=== PATIENT | male | born 1955 | race Caucasian/White ===

== ENCOUNTER 2022-03-26 09:02 | Inpatient (IN) | payer MEDICAID ==
[~2022-03-26] VITALS: Ht 185.4 cm; Wt 77.1 kg
[2022-03-26] MEDS ORDERED: METHYLPREDNISOLONE SOD SUCC 125 MG/2 ML VIAL IV STA (09:11)
[2022-03-26] MEDS ORDERED: IPRATROPIUM BROMIDE (0.02%) 0.5MG/2.5ML NEB HHN STA (09:11)
[2022-03-26] MEDS ORDERED: ALBUTEROL (0.083%) 2.5MG/3ML NEB HHN STA (09:11)
[2022-03-26 10:08] LABS: BASOPHILS % 0.5 % (0.0-2.0); EOSINOPHILS % 4.9 % (0.0-5.0); HEMATOCRIT. 44.4 % (42.0-52.0); HEMOGLOBIN. 15.3 g/dL (14.0-18.0); LYMPHOCYTES % 11.6 % (20.0-50.0); MEAN CORPUSCULAR HEMOGLOBIN 31.9 pg (28.0-32.0); MEAN PLATELET VOLUME 7.6 fl (7.4-10.4); MONOCYTES % 3.8 % (2.0-8.0); NEUTROPHILS % 79.2 % (40.0-76.0); PLATELET 282 x1000/uL (130-400); RED BLOOD CELL COUNT 4.78 mill/uL (4.7-6.1); RED CELL DISTRIBUTION WIDTH 12.7 % (11.6-14.6)
[2022-03-26 10:12] LABS: CHLORIDE 95 mEq/L (98-107)
[2022-03-26 10:45] LABS: BG BASE EXCESS 3.4 mmol/L (-2.0-2.0); BG CARBOXYHEMOGLOBIN 1.3 % (0.5-1.5); BG DEOXYHEMOGLOBIN 0.7 % (0.0-5.0); BG FRACTION INSPIRED OXYGEN 50; BG HCO3 ACT 35.2 mmol/L (22.0-26.0); BG METHEMOGLOBIN 0.4 % (0.0-1.5); BG OXYGEN SATURATION 99.3 % (92.0-98.5); BG OXYHEMOGLOBIN 97.6 % (94.0-97.0); BG PCO2 92.8 mmHg (35.0-45.0); BG PH 7.197 (7.350-7.450); BG SAMPLE SITE LEFT BRACHIAL; BG TOTAL HEMOGLOBIN 15.4 g/dL (12.0-18.0); BG VENT MODE MASK - BIPAP
[2022-03-26] MEDS ORDERED: MAGNESIUM 2 G PREMIX 50 ML IV STA (10:48)
[2022-03-26 12:43] LABS: BG CARBOXYHEMOGLOBIN 1.1 % (0.5-1.5); BG DEOXYHEMOGLOBIN 3.9 % (0.0-5.0); BG FRACTION INSPIRED OXYGEN 35; BG HCO3 ACT 39.7 mmol/L (22.0-26.0); BG METHEMOGLOBIN 0.4 % (0.0-1.5); BG OXYHEMOGLOBIN 94.6 % (94.0-97.0); BG PCO2 93.5 mmHg (35.0-45.0); BG PH 7.246 (7.350-7.450); BG PO2 81.6 mmHg (75.0-100.0); BG SAMPLE SITE RIGHT RADIAL; BG TOTAL HEMOGLOBIN 15.7 g/dL (12.0-18.0); BG TOTAL RESPIRATORY RATE 15 b/min; BG VENT MODE MASK - BIPAP
[2022-03-26] MEDS ORDERED: IPRATROPIUM/ALBUTEROL 0.5-3(2.5)MG/3ML NEB HHN PRN (13:15)
[2022-03-26] MEDS ORDERED: DOCUSATE SODIUM 100MG CAPSULE PO PRN (13:15)
[2022-03-26] MEDS ORDERED: TRAMADOL 50MG TABLET PO PRN (13:15)
[2022-03-26] MEDS ORDERED: ACETAMINOPHEN 325MG TABLET PO PRN (13:15)
[2022-03-26] MEDS ORDERED: MAGNESIUM/ALUMINUM HYDROXIDE/SIMETHICONE 30ML UDC PO PRN (13:15)
[2022-03-26] MEDS ORDERED: ONDANSETRON HCL 4MG/2ML INJ IV PRN (13:15)
[2022-03-26] MEDS ORDERED: LORAZEPAM 2MG/ML CPJ IV PRN (13:15)
[2022-03-26] MEDS ORDERED: CEFTRIAXONE 1 G PREMIX 50 ML IV NR (13:30)
[2022-03-26] MEDS ORDERED: AZITHROMYCIN 500 MG in DEXT 5% WATER 250 ML IV NR (14:30)
[2022-03-26] MEDS: IPRATROPIUM/ALBUTEROL 0.5-3(2.5)MG/3ML NEB HHN SCH (14:33)
[2022-03-26] MEDS: AMLODIPINE 10MG TABLET PO SCH (15:11)
[2022-03-26] MEDS: ENOXAPARIN 40MG/0.4ML SYR SUBCUT SCH (15:16)
[2022-03-26] MEDS: METHYLPREDNISOLONE SOD SUCC 125 MG/2 ML VIAL IV SCH ×2 (16:43→21:55)
[2022-03-26 21:30] VITALS: BP 146/69
[2022-03-26 22:28] VITALS: BP 146/76
[2022-03-27] VITALS (12 sets, daily range): BP systolic 106–130; BP diastolic 64–86
[2022-03-27] MEDS: IPRATROPIUM/ALBUTEROL 0.5-3(2.5)MG/3ML NEB HHN SCH ×4 (01:49→20:15)
[2022-03-27] MEDS ORDERED: GUAI-1211 PO (01:50)
[2022-03-27] MEDS ORDERED: TIOT18CA3 IH (01:50)
[2022-03-27] MEDS ORDERED: NICO-789 TD (01:50)
[2022-03-27] MEDS: METHYLPREDNISOLONE SOD SUCC 125 MG/2 ML VIAL IV SCH ×3 (03:38→22:01)
[2022-03-27 05:44] LABS: HEMATOCRIT. 40.3 % (42.0-52.0); HEMOGLOBIN. 13.6 g/dL (14.0-18.0); MEAN CORPUSCULAR HEMOGLOBIN 31.3 pg (28.0-32.0); MEAN PLATELET VOLUME 8.1 fl (7.4-10.4); PLATELET 257 x1000/uL (130-400); RED BLOOD CELL COUNT 4.34 mill/uL (4.7-6.1); RED CELL DISTRIBUTION WIDTH 12.7 % (11.6-14.6)
[2022-03-27 06:37] LABS: CHLORIDE 93 mEq/L (98-107)
[2022-03-27 06:45] LABS: HDL CHOLESTEROL 56 mg/dL (40-59); LDL CHOLESTEROL 71 mg/dL (5-100)
[2022-03-27 08:01] LABS: BG BASE EXCESS 3.2 mmol/L (-2.0-2.0); BG CARBOXYHEMOGLOBIN 0.7 % (0.5-1.5); BG DEOXYHEMOGLOBIN 16.8 % (0.0-5.0); BG METHEMOGLOBIN 0.2 % (0.0-1.5); BG OXYHEMOGLOBIN 82.3 % (94.0-97.0); BG PCO2 60.8 mmHg (35.0-45.0); BG PH 7.325 (7.350-7.450); BG PO2 43.5 mmHg (75.0-100.0); BG SAMPLE SITE RIGHT BRACHIAL; BG TOTAL HEMOGLOBIN 14.4 g/dL (12.0-18.0); BG VENT MODE ROOM AIR
[2022-03-27] MEDS: AMLODIPINE 10MG TABLET PO SCH (09:28)
[2022-03-27 10:15] LABS: PLATELET ESTIMATE NORMAL
[2022-03-27 16:48] LABS: BG BASE EXCESS 6.2 mmol/L (-2.0-2.0); BG CARBOXYHEMOGLOBIN 0.9 % (0.5-1.5); BG DEOXYHEMOGLOBIN 3.3 % (0.0-5.0); BG HCO3 ACT 33.7 mmol/L (22.0-26.0); BG METHEMOGLOBIN 0.1 % (0.0-1.5); BG OXYGEN SATURATION 96.7 % (92.0-98.5); BG OXYHEMOGLOBIN 95.7 % (94.0-97.0); BG PCO2 60.9 mmHg (35.0-45.0); BG PH 7.361 (7.350-7.450); BG PO2 83.6 mmHg (75.0-100.0); BG SAMPLE SITE RIGHT BRACHIAL; BG TOTAL HEMOGLOBIN 14.5 g/dL (12.0-18.0); BG VENT MODE MASK - BIPAP
[2022-03-27] MEDS ORDERED: NALOXONE HCL 0.4MG/ML VIAL IV PRN (18:30)
[2022-03-27 20:15] LABS: BG CARBOXYHEMOGLOBIN 0.7 % (0.5-1.5); BG DEOXYHEMOGLOBIN 3.3 % (0.0-5.0); BG FRACTION INSPIRED OXYGEN 28; BG HCO3 ACT 36.1 mmol/L (22.0-26.0); BG METHEMOGLOBIN 0.2 % (0.0-1.5); BG OXYGEN SATURATION 96.7 % (92.0-98.5); BG OXYHEMOGLOBIN 95.8 % (94.0-97.0); BG PCO2 60.3 mmHg (35.0-45.0); BG PH 7.395 (7.350-7.450); BG PO2 83.9 mmHg (75.0-100.0); BG SAMPLE SITE RIGHT RADIAL; BG TOTAL HEMOGLOBIN 13.8 g/dL (12.0-18.0); BG TOTAL RESPIRATORY RATE 26 b/min; BG VENT MODE MASK - BIPAP
[2022-03-27] MEDS: CEFTRIAXONE 1,000 MG in DEXTROSE 5% WATER 50 ML IV SCH (21:56)
[2022-03-27] MEDS: AZITHROMYCIN 500MG in DEXTROSE 5% WATER 250ML IV SCH (21:57)
[2022-03-27] MEDS: ENOXAPARIN 40MG/0.4ML SYR SUBCUT SCH (21:58)
[2022-03-28] VITALS (11 sets, daily range): BP systolic 88–129; BP diastolic 53–78
[2022-03-28] MEDS: IPRATROPIUM/ALBUTEROL 0.5-3(2.5)MG/3ML NEB HHN SCH ×4 (01:04→20:06)
[2022-03-28] MEDS: METHYLPREDNISOLONE SOD SUCC 125 MG/2 ML VIAL IV SCH ×2 (04:58→10:37)
[2022-03-28 08:07] LABS: BG BASE EXCESS 10.1 mmol/L (-2.0-2.0); BG CARBOXYHEMOGLOBIN 0.9 % (0.5-1.5); BG DEOXYHEMOGLOBIN 3.5 % (0.0-5.0); BG FRACTION INSPIRED OXYGEN 28; BG HCO3 ACT 37.1 mmol/L (22.0-26.0); BG METHEMOGLOBIN 0.1 % (0.0-1.5); BG OXYGEN SATURATION 96.5 % (92.0-98.5); BG OXYHEMOGLOBIN 95.5 % (94.0-97.0); BG PCO2 59.4 mmHg (35.0-45.0); BG PH 7.413 (7.350-7.450); BG PO2 80.6 mmHg (75.0-100.0); BG SAMPLE SITE RIGHT RADIAL; BG TOTAL HEMOGLOBIN 14.3 g/dL (12.0-18.0); BG TOTAL RESPIRATORY RATE 22 b/min; BG VENT MODE MASK - BIPAP
[2022-03-28] MEDS: AMLODIPINE 10MG TABLET PO SCH (10:37)
[2022-03-28] MEDS: ENOXAPARIN 40MG/0.4ML SYR SUBCUT SCH (13:54)
[2022-03-28] MEDS: AZITHROMYCIN 500MG in DEXTROSE 5% WATER 250ML IV SCH (13:54)
[2022-03-28] MEDS: CEFTRIAXONE 1,000 MG in DEXTROSE 5% WATER 50 ML IV SCH (16:06)
[2022-03-28] MEDS: METHYLPREDNISOLONE SOD SUCC 40 MG/ML VIAL IV SCH ×2 (16:44→23:10)
[2022-03-29] VITALS (18 sets, daily range): BP systolic 99–142; BP diastolic 49–91
[2022-03-29] MEDS: IPRATROPIUM/ALBUTEROL 0.5-3(2.5)MG/3ML NEB HHN SCH ×4 (01:25→20:48)
[2022-03-29 08:27] LABS: BG BASE EXCESS 8.7 mmol/L (-2.0-2.0); BG CARBOXYHEMOGLOBIN 0.3 % (0.5-1.5); BG DEOXYHEMOGLOBIN 3.5 % (0.0-5.0); BG FRACTION INSPIRED OXYGEN 32; BG HCO3 ACT 35.4 mmol/L (22.0-26.0); BG OXYGEN SATURATION 96.5 % (92.0-98.5); BG OXYHEMOGLOBIN 95.2 % (94.0-97.0); BG PCO2 57.4 mmHg (35.0-45.0); BG PH 7.408 (7.350-7.450); BG PO2 88.5 mmHg (75.0-100.0); BG SAMPLE SITE RIGHT RADIAL; BG VENT MODE NASAL CANNULA
[2022-03-29] MEDS: METHYLPREDNISOLONE SOD SUCC 40 MG/ML VIAL IV SCH ×2 (09:01→16:15)
[2022-03-29] MEDS: AMLODIPINE 10MG TABLET PO SCH (09:02)
[2022-03-29] MEDS ORDERED: IOHEXOL-300 100 ML BOTTLE ONE (13:19)
[2022-03-29] MEDS: ENOXAPARIN 40MG/0.4ML SYR SUBCUT SCH (14:38)
[2022-03-29] MEDS: AZITHROMYCIN 500MG in DEXTROSE 5% WATER 250ML IV SCH (14:45)
[2022-03-29 15:03] LABS: HEMATOCRIT. 40.3 % (42.0-52.0); HEMOGLOBIN. 13.5 g/dL (14.0-18.0); MEAN CORPUSCULAR HEMOGLOBIN 30.8 pg (28.0-32.0); MEAN CORPUSCULAR VOLUME 91.8 fL (80.0-94.0); MEAN PLATELET VOLUME 8.7 fl (7.4-10.4); PLATELET 265 x1000/uL (130-400); RED BLOOD CELL COUNT 4.39 mill/uL (4.7-6.1); RED CELL DISTRIBUTION WIDTH 12.8 % (11.6-14.6)
[2022-03-29 15:28] LABS: CHLORIDE 93 mEq/L (98-107)
[2022-03-29 15:57] LABS: PLATELET ESTIMATE NORMAL
[2022-03-29] MEDS: CEFTRIAXONE 1,000 MG in DEXTROSE 5% WATER 50 ML IV SCH (16:15)
[2022-03-30] VITALS (12 sets, daily range): BP systolic 102–135; BP diastolic 64–77
[2022-03-30] MEDS: METHYLPREDNISOLONE SOD SUCC 40 MG/ML VIAL IV SCH ×3 (00:05→16:08)
[2022-03-30] MEDS: IPRATROPIUM/ALBUTEROL 0.5-3(2.5)MG/3ML NEB HHN SCH ×4 (03:07→22:37)
[2022-03-30] MEDS: AMLODIPINE 10MG TABLET PO SCH (09:00)
[2022-03-30] MEDS: ENOXAPARIN 40MG/0.4ML SYR SUBCUT SCH (13:02)
[2022-03-30] MEDS: AZITHROMYCIN 500MG in DEXTROSE 5% WATER 250ML IV SCH (13:03)
[2022-03-30] MEDS: CEFTRIAXONE 1,000 MG in DEXTROSE 5% WATER 50 ML IV SCH (14:53)
[2022-03-31] VITALS (12 sets, daily range): BP systolic 91–128; BP diastolic 62–81
[2022-03-31] MEDS: METHYLPREDNISOLONE SOD SUCC 40 MG/ML VIAL IV SCH ×4 (00:01→23:41)
[2022-03-31] MEDS: IPRATROPIUM/ALBUTEROL 0.5-3(2.5)MG/3ML NEB HHN SCH ×4 (02:19→20:24)
[2022-03-31 06:50] LABS: HEMATOCRIT 40.1 % (42.0-52.0); HEMOGLOBIN 13.7 g/dL (14.0-18.0); MEAN CORPUSCULAR HEMOGLOBIN 31.2 pg (28.0-32.0); MEAN CORPUSCULAR VOLUME 91.7 fL (80.0-94.0); PLATELET 202 x1000/uL (130-400); RED BLOOD CELL COUNT 4.38 mill/uL (4.7-6.1); RED CELL DISTRIBUTION WIDTH 12.8 % (11.6-14.6)
[2022-03-31 06:51] LABS: CHLORIDE 94 mEq/L (98-107)
[2022-03-31] MEDS: AMLODIPINE 10MG TABLET PO SCH (08:27)
[2022-03-31] MEDS: ENOXAPARIN 40MG/0.4ML SYR SUBCUT SCH (12:35)
[2022-03-31] MEDS: GUAIFENESIN 200MG/10ML SUGAR FREE UDC PO PRN (12:35)
[2022-03-31] MEDS: AZITHROMYCIN 500MG in DEXTROSE 5% WATER 250ML IV SCH (13:00)
[2022-03-31] MEDS: CEFTRIAXONE 1,000 MG in DEXTROSE 5% WATER 50 ML IV SCH (15:11)
[2022-04-01] VITALS (12 sets, daily range): BP systolic 111–132; BP diastolic 62–85
[2022-04-01] MEDS: IPRATROPIUM/ALBUTEROL 0.5-3(2.5)MG/3ML NEB HHN SCH ×4 (02:15→21:30)
[2022-04-01] MEDS: GUAIFENESIN 200MG/10ML SUGAR FREE UDC PO PRN ×2 (08:22→18:20)
[2022-04-01] MEDS: AMLODIPINE 10MG TABLET PO SCH (08:22)
[2022-04-01] MEDS: METHYLPREDNISOLONE SOD SUCC 40 MG/ML VIAL IV SCH ×3 (08:22→23:11)
[2022-04-01] MEDS: ENOXAPARIN 40MG/0.4ML SYR SUBCUT SCH (13:02)
[2022-04-02] VITALS (12 sets, daily range): BP systolic 107–123; BP diastolic 64–78
[2022-04-02] MEDS: IPRATROPIUM/ALBUTEROL 0.5-3(2.5)MG/3ML NEB HHN SCH ×4 (02:37→21:26)
[2022-04-02] MEDS: ENOXAPARIN 40MG/0.4ML SYR SUBCUT SCH (07:24)
[2022-04-02] MEDS: METHYLPREDNISOLONE SOD SUCC 40 MG/ML VIAL IV SCH ×3 (09:48→23:10)
[2022-04-02] MEDS: GUAIFENESIN 200MG/10ML SUGAR FREE UDC PO PRN (09:48)
[2022-04-02] MEDS: AMLODIPINE 10MG TABLET PO SCH (09:49)
[2022-04-02 11:11] LABS: HEMATOCRIT. 40.8 % (42.0-52.0); HEMOGLOBIN. 13.9 g/dL (14.0-18.0); MEAN CORPUSCULAR HEMOGLOBIN 31.2 pg (28.0-32.0); MEAN CORPUSCULAR VOLUME 91.8 fL (80.0-94.0); MEAN PLATELET VOLUME 9.1 fl (7.4-10.4); PLATELET 192 x1000/uL (130-400); RED BLOOD CELL COUNT 4.45 mill/uL (4.7-6.1); RED CELL DISTRIBUTION WIDTH 12.5 % (11.6-14.6)
[2022-04-02 11:18] LABS: PROTHROMBIN TIME 11.2 sec (9.6-11.0)
[2022-04-02 11:22] LABS: CHLORIDE 91 mEq/L (98-107)
[2022-04-02 14:08] LABS: PLATELET ESTIMATE NORMAL
[2022-04-03] VITALS (11 sets, daily range): BP systolic 103–128; BP diastolic 70–84
[2022-04-03] MEDS: IPRATROPIUM/ALBUTEROL 0.5-3(2.5)MG/3ML NEB HHN SCH ×3 (00:57→16:13)
[2022-04-03] MEDS: METHYLPREDNISOLONE SOD SUCC 40 MG/ML VIAL IV SCH (08:45)
[2022-04-03] MEDS: AMLODIPINE 10MG TABLET PO SCH (08:45)
[2022-04-03] MEDS: ENOXAPARIN 40MG/0.4ML SYR SUBCUT SCH (15:10)
[2022-04-03] MEDS ORDERED: PREDNISONE 20MG TABLET PO SCH (17:00)
== END 2022-04-03 21:40 | disposition home or self-care (01) | DRG 140 ==
LOC: ER 09:02 → 5EST 11:43 → EDBEDREQ 11:44 → EDBEDREQTM 11:44 → ENRESERV 15:29 → 5EST 03-27 06:18
PROVIDERS: ADMIT Hospitalist; ATTEND Hospitalist
PROC: 5A09357 Assistance with Respiratory Ventilation, Less than 24 Consecutive Hours, Continuous Positive Airway Pressure (ICD-10-PCS; principal; 2022-03-26)
PROC: 5A09357 Assistance with Respiratory Ventilation, Less than 24 Consecutive Hours, Continuous Positive Airway Pressure (ICD-10-PCS; 2022-03-27)
PROC: 5A09357 Assistance with Respiratory Ventilation, Less than 24 Consecutive Hours, Continuous Positive Airway Pressure (ICD-10-PCS; 2022-03-30)
PROC: 5A09357 Assistance with Respiratory Ventilation, Less than 24 Consecutive Hours, Continuous Positive Airway Pressure (ICD-10-PCS; 2022-03-31)
DX: J44.1 Chronic obstructive pulmonary disease with (acute) exacerbation (principal); J96.02 Acute respiratory failure with hypercapnia; D49.1 Neoplasm of unspecified behavior of respiratory system; E87.29 Other acidosis; Z20.822 Contact with and (suspected) exposure to COVID-19; R73.9 Hyperglycemia, unspecified; Z87.891 Personal history of nicotine dependence
CPT/HCPCS: 36415; 36600; 71045; 71260; 80048; 80053; 80061; 82375; 82378; 82805; 83036; 83880; 84484; 85025; 85027; 87426; 93005; 93970; 94640; 94660; 99291; C9803; J0456; J0696; J1650; J2920; J2930; J3475; J7060; J7512; Q9967